=== PATIENT | male | born 1960 | race Caucasian/White ===

== ENCOUNTER 2023-06-15 09:38 | Outpatient (OUT) | payer SELFPAY ==
--- NOTE | 2023-06-15 09:48 | ECG_ITS ---
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
== END 2023-06-15 09:39 | disposition home or self-care (01) ==
LOC: CARD 09:41
PROVIDERS: PCP Physician Assistant; Visit Provider Physician Assistant
DX: I49.9 Cardiac arrhythmia, unspecified (principal)
CPT/HCPCS: 93005

== ENCOUNTER 2023-06-18 01:00 | Observation (INO) | payer SELFPAY ==
[2023-06-18] VITALS (41 sets, daily range): BP systolic 92–164; BP diastolic 47–79; PULSE 68–105; RESP 10–27; TEMP 36.9–37.7; O2SAT 89–100; BMI 28.9; BMI 29.3
--- NOTE | 2023-06-18 01:45 | ECG_ITS ---
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
--- NOTE | 2023-06-18 01:46 | CT_ITS ---
[address] [address] Patient Name: SHIRLENE LEVY MRN: [id number] date: 1960 Sex: M Assigned Patient Location: ER Current Patient Location: Accession/Order Number: [id number] Exam Date: 06/18/2023 02:35 Report Date: 06/18/2023 03:03 At the request of: CLARA VO Procedure: CT abdomen pelvis w con EXAMINATION: XR chest 1V, CT abdomen pelvis w con HISTORY: chest pain COMPARISON: No relevant comparison available. FINDINGS: LUNGS: Underexpanded lungs with mild confluent opacities within left lung base. VASCULATURE: No increased pulmonary vasculature. PLEURA: No pneumothorax, effusion, or pleural thickening. CARDIAC: No cardiomegaly or cardiac silhouette abnormality. MEDIASTINUM: No visible mass or adenopathy. BONES: No fracture or visible bone lesion. OTHER: Negative. CT/CT abdomen pelvis w con IMPRESSION: 1. Low lung volume examination. 2. Mild left basilar infiltrates, or possibly atelectasis. EXAMINATION: XR chest 1V, CT abdomen pelvis w con HISTORY: chest pain irregular heartbeat, nausea COMPARISON: No relevant comparison available. TECHNIQUE: Axial, Coronal, and Sagittal images were obtained without and/or with IV contrast as indicated by examination type. Dose reduction techniques were achieved by using automated exposure control and/or adjustment of mA and/or kV according to patient size and/or use of iterative reconstruction technique. FINDINGS: LUNG BASES: Patchy infiltrates within lung bases bilaterally. LIVER: Slightly nodular liver margins. BILIARY: No dilatation or calcification. PANCREAS: No lesion, fluid collection, or abnormal duct dilatation. SPLEEN: Mild splenomegaly, 14.3 cm. ADRENALS: No mass or enlargement. KIDNEYS: Benign-appearing renal cysts bilaterally. Nonobstructing stones within the kidneys, largest on right, 6 mm. BOWEL/MESENTERY: No visible mass, obstruction, or bowel wall thickening. AORTA/VASCULAR: No aneurysm or dissection. RETROPERITONEUM: No mass or adenopathy. LYMPH NODES: No adenopathy. URINARY BLADDER: No visible focal wall thickening, lesion, or calculus. PELVIC ORGANS: No visible mass. Pelvic organs appropriate for patient age. ABDOMINAL WALL: Small fat filled inguinal hernias bilaterally. BONES: No bony lesion or fracture. OTHER: Negative. IMPRESSION: 1. Mild patchy infiltrates within bilateral lung bases favoring pneumonia. 2. Nodular liver margins; nonspecific but suggestive of cirrhosis. 3. Splenomegaly which can also be seen with cirrhosis. No ascites or significant collateral circulation. 4. Nonobstructing bilateral lithiasis. Electronically authenticated by: AYAAN RIVERA Date: 06/18/2023 03:03
[2023-06-18 01:56] LABS: Basophils Percent Auto 0.2 % (0.2-2.0); Eosinophils Percent Auto 0.2 % (0.9-7.0); Hematocrit 38.5 % (42.0-54.0); Hemoglobin 12.6 g/dL (14.0-18.0); Immature Granulocytes Abs Auto 0.02 10^3/uL (0.00-0.03); Immature Granulocytes Pct Auto 0.4 % (0.0-0.5); Lymphocytes Absolute Auto 0.9 10^3/uL (1.2-3.8); Mean Corpuscular HGB Conc 32.7 g/dL (29.9-35.2); Mean Corpuscular Volume 82.4 fL (80.0-94.0); Monocytes Absolute Auto 0.6 10^3/uL (0.3-0.8); Monocytes Percent Auto 10.3 % (1.7-12.0); Neutrophils Absolute Auto 4.1 10^3/uL (1.4-6.5); Neutrophils Percent Auto 72.9 % (43.0-75.0); Platelet Count 191 10^3/uL (150-450); Red Blood Count 4.67 10^6/uL (4.70-6.10); Red Cell Distribution Width 12.9 % (11.0-15.0); White Blood Count 5.6 10^3/uL (4.0-11.0)
--- NOTE | 2023-06-18 02:04 | ED_ITS ---
HPI - Chest Pain General Chief Complaint: Chest Pain Stated Complaint: CHEST PAIN, NASEAU, SOB Time Seen by Provider: 06/18/23 01:29 Source: patient Mode of arrival: Wheelchair Limitations: no limitations History of Present Illness HPI narrative: patient complains of nausea for past couple of weeks. Describes episodes of irregular heart beats and chest pain on and off. Also episodes of dizziness wherein he felt like the room was getting dark and closing in. He has not vomited. Not short of breath but no energy Related Data Home Medications Medication Instructions Recorded Confirmed lisinopril 20 tab 06/18/23 mg-hydrochlorothiazide 25 mg tablet Allergies Allergy/AdvReac Type Severity Reaction Status Date / Time No Known Drug Allergies Allergy Verified 06/18/23 01:17 Review of Systems ROS Status of ROS 10 or more systems reviewed and unremark able except as noted in history and below [facility] Medical History (Updated 06/18/23 @ 05:00 by Graciela Connor) HTN (hypertension) ?I10 - Essential (primary) hypertension (ICD-10) Family History (Updated 06/18/23 @ 05:01 by Graciela Connor) Father Family history of cancer Social History (Updated 06/18/23 @ 05:02 by Graciela Connor) Within the past year, how often did you have a drink containing alcohol: monthly or less Within the past year, how many standard drinks containing alcohol did you have on a typical day: 5 or 6 Within the past year, how often did you have six or more drinks on one occasion: never Total score: 4 Score interpretation: A score less than 4 is consistent with normal alcohol consumption. Smoking status: Former smoker Second hand tobacco smoke exposure: No Non-prescribed substance use: denies use Previous occupational history: daja Known occupational exposures/hazards: No Highest level of school completed/degree received: high school graduate Are you now , , , , never or living with a partner: In a typical week, how many times do you talk on the telephone with family, friends, or neighbors: 3 or more times per week How often do you get together with friends or relatives: 3 or more times per week How often do you attend restorationist or druze services: never Do you belong to any clubs or organizations such as restorationist groups unions, fraternal or athletic groups, or school groups: no Total score: 2 Score interpretation: A score of greater than or equal to 2 indicates the lowest level of social isolation. Little interest or pleasure in doing things: not at all Feeling down, depressed, or hopeless: not at all Feel stressed/tense/nervous/anxious/difficulty sleeping: not at all Due to disability, difficulty making decisions: No Do you think of yourself as: straight/heterosexual Gender Identity: male Exam Constitutional Vital Signs, click to edit/add: Last Vital Signs Temp 99.0 F 06/18/23 04:31 Pulse 96 H 06/18/23 06:11 Resp 18 06/18/23 04:31 BP 164/78 H 06/18/23 04:31 Pulse Ox 96 06/18/23 04:31 O2 Del Method Room Air 06/18/23 04:31 Common normals: no apparent distress, average body habitus, oriented x3, no limitations, healthy appearing, alert and well nourished Eye Common normals: EOMs intact bilaterally and conjunctivae normal Respiratory Common normals: normal respiratory effort, no retractions and no use of accessory muscles Cardio Common normals: regular rate, regular rhythm, S1 normal heart sound and S2 normal heart sound GI Common normals: Normal to inspection, nondistended, normoactive bowel sounds present, soft to palpation and non-tender Extremity Common normals: normal to inspection and full ROM Neuro Common normals: oriented x3, CN's II-XII intact bilaterally, moves all extremities and no focal motor deficits Psych Appearance: grossly normal Course Vital Signs Vital signs: Vital Signs Pulse Rate 100 H 06/18/23 01:10 Respiratory Rate 17 06/18/23 01:10 Temperature 99.0 F 06/18/23 04:31 Pulse Rate 96 H 06/18/23 06:11 Respiratory Rate 18 06/18/23 04:31 Blood Pressure 164/78 H 06/18/23 04:31 Pulse Oximetry 96 06/18/23 04:31 Oxygen Delivery Method Room Air 06/18/23 04:31 MDM - Chest Pain MDM Narrative Medical decision making narrative: patient ill the past 2 weeks with gen. weakness. No energy. Also describes irregular heart beats, episodes of chest pain and recurrent episodes of near syncope. feels like everything was going dark. found to have elevated lipase . CT without evidence of pancreatitis. CT with bilat patchy infiltrates favoring pneumonia. EKG with frequent PVCs. Discussed with the hospitalist and will plan obs admission Lab Data Labs: Lab Results 06/18/23 06/18/23 Range/Units 01:28 01:57 WBC 5.6 (4.0-11.0) 10^3/uL RBC 4.67 L (4.70-6.10) 10^6/uL Hgb 12.6 L (14.0-18.0) g/dL Hct 38.5 L (42.0-54.0) % MCV 82.4 (80.0-94.0) fL MCH 27.0 (25.9-34.0) pg MCHC 32.7 (29.9-35.2) g/dL RDW 12.9 (11.0-15.0) % Plt Count 191 (150-450) 10^3/uL MPV 9.0 L (9.5-13.5) fL Neut % (Auto) 72.9 (43.0-75.0) % Lymph % (Auto) 16.0 L (20.5-60.0) % [place] % (Auto) 10.3 (1.7-12.0) % Eos % (Auto) 0.2 L (0.9-7.0) % Baso % (Auto) 0.2 (0.2-2.0) % Neut # (Auto) 4.1 (1.4-6.5) 10^3/uL Lymph # (Auto) 0.9 L (1.2-3.8) 10^3/uL [place] # (Auto) 0.6 (0.3-0.8) 10^3/uL Eos # (Auto) 0.0 (0.0-0.7) 10^3/uL Baso # (Auto) 0.0 (0.0-0.1) 10^3/uL Abs Immat Gran (auto) 0.02 (0.00-0.03) 10^3/uL Imm/Tot Granulo (auto) 0.4 (0.0-0.5) % D-Dimer 0.50 (<=0.59) mg/L FEU Sodium 136 (136-145) mmol/L Potassium 3.7 (3.5-5.1) mmol/L Chloride 101 (98-107) mmol/L Carbon Dioxide 26.6 (21.0-32.0) mmol/L Anion Gap 12.1 BUN 18.0 (7.0-18.0) mg/dL Creatinine 1.15 (0.70-1.30) mg/dL Est GFR ( Amer) >60 (>=60) Est GFR (Non-Af Amer) >60 (>=60) BUN/Creatinine Ratio 15.7 Glucose 128 H (74-106) mg/dL Calcium 8.9 (8.5-10.1) mg/dL Total Bilirubin 0.9 (0.2-1.0) mg/dL AST 49 H (15-37) U/L ALT 62 (16-63) U/L Alkaline Phosphatase 61 (46-116) U/L Troponin I High Sens 9.8 (4.0-76.1) pg/mL Total Protein 7.2 (6.4-8.2) g/dL Albumin 2.7 L (3.4-5.0) g/dL Globulin 4.5 g/dL Albumin/Globulin Ratio 0.6 Lipase 91.0 H (16.0-77.0) U/L Adenovirus (PCR) Not detected (NOT DETECTE) C. pneumoniae DNA (PCR) Not detected (NOT DETECTE) Coronavirus Type OC43 Not detected (NOT DETECTE) Coronavirus Type HKU1 Not detected (NOT DETECTE) Coronavirus Type 229E Not detected (NOT DETECTE) Coronavirus Type NL63 Not detected (NOT DETECTE) Human Metapneumovir PCR Not detected (NOT DETECTE) M. pneumoniae (PCR) Not detected (NOT DETECTE) Parainfluenza PCR Not detected (NOT DETECTE) Parainfluenza 2 (PCR) Not detected (NOT DETECTE) Parainfluenza 3 (PCR) Not detected (NOT DETECTE) Parainfluenza 4 (PCR) Not detected (NOT DETECTE) RSV (RT-PCR) Not detected (NOT DETECTE) Entero/Rhino (PCR) Not detected (NOT DETECTE) SARS-CoV-2 (PCR) Detected A (NOT DETECTE) Bordetella pertussis (PCR) Not detected (NOT DETECTE) B parapertussis DNA PCR Not detected (NOT DETECTE) Influenza Type A (PCR) Not detected (NOT DETECTE) Influenza Type B (PCR) Not detected (NOT DETECTE) Discharge Plan Discharge Chief Complaint: Chest Pain Clinical Impression: Pneumonia due to COVID-19 virus, Frequent PVCs, Near syncope Patient Disposition: Admitted as Observation Discharge Date/Time: 06/18/23 04:54
[2023-06-18 02:07] LABS: Adenovirus NOT DETECTED (NOT DETECTE); Bordetella parapertussis NOT DETECTED (NOT DETECTE); Coronavirus 229E NOT DETECTED (NOT DETECTE); Coronavirus HKU1 NOT DETECTED (NOT DETECTE); Coronavirus NL63 NOT DETECTED (NOT DETECTE); Coronavirus OC43 NOT DETECTED (NOT DETECTE); Human Metapneumovirus NOT DETECTED (NOT DETECTE); Human Rhinovirus/Enterovirus NOT DETECTED (NOT DETECTE); Influenza A NOT DETECTED (NOT DETECTE); Influenza B NOT DETECTED (NOT DETECTE); Mycoplasma pneumoniae NOT DETECTED (NOT DETECTE); Parainfluenza Virus 1 NOT DETECTED (NOT DETECTE); Parainfluenza Virus 2 NOT DETECTED (NOT DETECTE); Parainfluenza Virus 3 NOT DETECTED (NOT DETECTE); Parainfluenza Virus 4 NOT DETECTED (NOT DETECTE); Respiratory Syncytial Virus NOT DETECTED (NOT DETECTE)
[2023-06-18 02:19] LABS: Alanine Aminotransferase 62 U/L (16-63); Albumin Globulin Ratio 0.6; Albumin Level 2.7 g/dL (3.4-5.0); Alkaline Phosphatase 61 U/L (46-116); Anion Gap 12.1; Aspartate Amino Transferase 49 U/L (15-37); BUN Creatinine Ratio 15.7; Bilirubin Total 0.9 mg/dL (0.2-1.0); Calcium 8.9 mg/dL (8.5-10.1); Carbon Dioxide 26.6 mmol/L (21.0-32.0); Chloride 101 mmol/L (98-107); Estimated GFR (African America >60 (>=60); Estimated GFR (Non-African Ame >60 (>=60); Globulin 4.5 g/dL; Glucose 128 mg/dL (74-106); Potassium 3.7 mmol/L (3.5-5.1); Sodium 136 mmol/L (136-145); Total Protein 7.2 g/dL (6.4-8.2); Troponin I High Sensitivity 9.8 pg/mL (4.0-76.1)
[2023-06-18 03:01] LABS: SARS-CoV-2 DETECTED (NOT DETECTE)
[2023-06-18] MEDS: ONDANSETRON PF 4 MG/2 ML VIAL IV (03:02)
--- NOTE | 2023-06-18 08:30 | CA_ITS ---
Patient Name Site Name SHIRLENE LEVY [facility] Account No Medical Record Number Age Sex Date Time [id number] [facility]:[id number] M 06/19/2023 07:17 At the Request Of SHAIKH ELLIOT ECHOCARDIOGRAM REPORT PROCEDURE: CA ECHO DOPPLER COMPLETE INDICATIONS: Presyncope, Covid pneumonia, Chest pain, palpitations, Dyspnea COMPARISON: None. DESCRIPTION: COMPLETE ECHOCARDIOGRAM Real-time transthoracic echocardiography with 2D, M-mode, spectral and color flow Doppler performed. QUALITY: Technical quality was good. LEFT VENTRICLE: Normal chamber size. Moderate concentric left ventricular hypertrophy. Global left ventricular systolic function is normal. LV EF: Estimated left ventricular ejection fraction is 65 % DIASTOLIC: Normal diastolic function. ATRIAL SEPTUM: LEFT ATRIUM: Normal chamber size. RIGHT ATRIUM: Normal chamber size. RIGHT VENTRICLE: Normal chamber size. Normal right ventricular systolic function. TRICUSPID VALVE: Normal mobility and thickness. No stenosis with trivial regurgitation. No evidence of pulmonary hypertension. RVSP 25 mmHg MITRAL VALVE: Normal mobility and thickness. No evidence of mitral valve stenosis. There is no mitral annular calcification. Trivial mitral regurgitation. AORTIC VALVE: Normal trileaflet appearance. Thickened aortic valve. Normal leaflet mobility. No evidence of aortic valve stenosis. No aortic regurgitation. AORTIC ROOT: Normal diameter and appearance. PULMONIC VALVE: Normal thickness and mobility. No stenosis. No regurgitation. PERICARDIUM: No evidence of pericardial effusion. IVC: Collapses with inspirations. Normal size. PLEURA: CONCLUSION: 1. Moderate concentric left ventricular hypertrophy with normal systolic function. LVEF is 65%. 2. Normal right ventricular size and systolic function. 3. No significant valvular dysfunction. 4. Normal right-sided pressures. Adult Echocardiography Procedure Report Left Ventricle LVEDD (3.7 - 5.6 cm): 4.52 cm LVESD (2.2 - 4.0 cm): 2.95 cm LVIVS thickness (0.6 - 1.2 cm): 1.48 cm LVPW thickness (0.5 - 1.0 cm): 1.26 cm e': 0.08 m/s E - e': 10.15 LVOT Max Gradient: 6.00 mm[Hg] LVOT Area (cm2): 1.22 m/s Peak Velocity (LVOT): 1.22 m/s Mean Velocity (LVOT): 0.85 m/s LVOT Diameter 2.42 cm Left Ventricular Ejection Fraction: 65 % Left Atrium LA Volume Index (2D A2C): 33.20 ml/m2 Left Atrium Systolic Dimension: 4.08 cm Mitral Valve MV E to A Ratio: 0.84 Mitral Valve A-Wave Peak Velocity: 0.97 m/s Mitral Valve E-Wave Peak Velocity: 0.82 m/s Right Ventricle RV Internal Diastolic Dimension: 3.57 cm Aorta AO Root Diam: 3.14 cm Ascending Ao Diam: 3.42 cm Aortic Valve AoV Area (Peak Rob): 3.48 cm2, 3.48 cm2 AoV Area (VTI): 3.12 cm2, 3.12 cm2 Peak Velocity(Antegrade Flow): 1.62 m/s Peak Gradient(Antegrade Flow): 10.55 mm[Hg] Mean Velocity(Antegrade Flow): 1.06 m/s Mean Gradient(Antegrade Flow): 5.23 mm[Hg] Velocity Time Integral: 33.20 cm Tricuspid Valve Peak Velocity (Regurgitant Flow): 2.11 m/s, 2.36 m/s Pulmonic Valve Mean Gradient: 5.60 mm[Hg], 4.37 mm[Hg], 4.41 mm[Hg] Mean Velocity: 1.14 m/s, 0.97 m/s, 0.96 m/s Peak Velocity: 1.46 m/s Peak Gradient: 8.95 mm[Hg], 8.61 mm[Hg], 7.87 mm[Hg] Right Atrium Right Atrium Systolic Pressure: 67.61 ml, 67.61 ml Dictated by: Ronald Colon M.D. on 06/20/2023 at 18:21 Approved by: Ronald Colon M.D. on 06/20/2023 at 18:25
[2023-06-18 09:10] LABS: TSH W/ REFLEX FT4 1.685 (0.358-3.740)
[2023-06-18] MEDS: CEFTRIAXONE 1,000 MG in 0.9 % SODIUM CHLORIDE 50 ML 100 MG IV (09:44)
[2023-06-18] MEDS: METOPROLOL TARTRATE 25 MG TABLET PO ×2 (09:44→20:46)
[2023-06-18] MEDS: LACTATED RINGER'S SOLUTION 1,000 ML 100 ML IV ×2 (09:44→19:51)
[2023-06-18] MEDS: ENOXAPARIN SODIUM 40 MG/0.4 ML SYRINGE SUBQ (09:45)
[2023-06-18 12:07] LABS: Troponin I High Sensitivity 8.6 pg/mL (4.0-76.1)
--- NOTE | 2023-06-18 12:40 | P.HP_ITS ---
H&P: HPI History of Present Illness Chief complaint: CHEST PAIN, NASEAU, SOB COVID PNEUMONIA Narrative: 62 y o male reports for past 2 weeks, he has been feeling weak, tired. He has no appetite and has not eating,drinking much. He denies fever, cough or resp symptoms but has been experiencing intermittent abdominal discomfort and heart palpitations with associated mild chest and abdominal discomfort. He came to ED last evening for further evaluation when along with heart palpitations, he felt his vision was closing in on him and that he will pass out. he has no prior hx of CAD, CHF or arhythmia. W/u in ED revealed patient has COVID-19 PNA and was admitted for cardiac monitoring. He reports feeling better today. He has not felt palpitations since admission. Review of Systems ROS Status of ROS 10 or more systems reviewed and unremark able except as noted in history and below [facility] Medical History (Updated 06/18/23 @ 12:48 by Shaikh Tyrese MD) Chronic hepatitis C ?B18.2 - Chronic viral hepatitis C (ICD-10) HTN (hypertension) ?I10 - Essential (primary) hypertension (ICD-10) Family History (Updated 06/18/23 @ 05:01 by Graciela Connor) Father Family history of cancer Social History (Updated 06/18/23 @ 05:02 by Graciela Connor) Within the past year, how often did you have a drink containing alcohol: monthly or less Within the past year, how many standard drinks containing alcohol did you have on a typical day: 5 or 6 Within the past year, how often did you have six or more drinks on one occasion: never Total score: 4 Score interpretation: A score less than 4 is consistent with normal alcohol consumption. Smoking status: Former smoker Second hand tobacco smoke exposure: No Non-prescribed substance use: denies use Previous occupational history: elevator serviceman Known occupational exposures/hazards: No Highest level of school completed/degree received: high school graduate Are you now , , , , never or living with a partner: In a typical week, how many times do you talk on the telephone with family, friends, or neighbors: 3 or more times per week How often do you get together with friends or relatives: 3 or more times per week How often do you attend zoroastrianism or church services: never Do you belong to any clubs or organizations such as zoroastrianism groups unions, fraternal or athletic groups, or school groups: no Total score: 2 Score interpretation: A score of greater than or equal to 2 indicates the lowest level of social isolation. Little interest or pleasure in doing things: not at all Feeling down, depressed, or hopeless: not at all Feel stressed/tense/nervous/anxious/difficulty sleeping: not at all Due to disability, difficulty making decisions: No Do you think of yourself as: straight/heterosexual Gender Identity: male Meds Home Medications and Allergies Home Medications Medication Instructions Recorded Confirmed Type lisinopril 20 1 tab PO .QD 06/18/23 06/18/23 History mg-hydrochlorothiazide 25 mg tablet Allergies Allergy/AdvReac Type Severity Reaction Status Date / Time No Known Drug Allergies Allergy Verified 06/18/23 01:17 Exam Constitutional Vital Signs, click to edit/add: Last Vital Signs Temp 99.0 F 06/18/23 04:31 Pulse 74 06/18/23 11:52 Resp 18 06/18/23 08:00 BP 164/78 H 06/18/23 04:31 Pulse Ox 96 06/18/23 04:31 O2 Del Method Room Air 06/18/23 04:31 Documenting provider has reviewed patient's vital signs: yes Common normals: no apparent distress and oriented x3 General appearance: cooperative HENMT Common normals: normocephalic and head/scalp atraumatic Head and scalp: normocephalic and atraumatic Eye Common normals: conjunctivae normal and no scleral icterus Conjunctiva: conjunctiva(e) normal Respiratory Common normals: normal respiratory effort and clear to auscultation bilaterally Effort & inspection: able to speak in complete sentences Auscultation: clear to auscultation bilaterally Cardio Common normals: regular rate, S1 normal heart sound and S2 normal heart sound Rate: regular rate Heart sounds: S1 normal and S2 normal GI Common normals: Normal to inspection, nondistended, normoactive bowel sounds present, soft to palpation, non-tender and no hepatosplenomegaly Palpation: soft and no hepatosplenomegaly Extremity Common normals: no clubbing, cyanosis or edema Neuro Common normals: oriented x3, moves all extremities and no focal motor deficits Psych Common normals: mental status grossly normal, denies hallucinations, denies homicidal ideation and denies suicidal ideation Results Labs Labs: Short CBC 06/18/23 Range/Units 01:28 WBC 5.6 (4.0-11.0) 10^3/uL Hgb 12.6 L (14.0-18.0) g/dL Hct 38.5 L (42.0-54.0) % Plt Count 191 (150-450) 10^3/uL BMP 06/18/23 01:28 Sodium 136 Potassium 3.7 Chloride 101 Carbon Dioxide 26.6 BUN 18.0 Creatinine 1.15 Glucose 128 H Calcium 8.9 Liver Function 06/18/23 Range/Units 01:28 Total Bilirubin 0.9 (0.2-1.0) mg/dL AST 49 H (15-37) U/L ALT 62 (16-63) U/L Alkaline Phosphatase 61 (46-116) U/L Albumin 2.7 L (3.4-5.0) g/dL Assessment and Plan Assessment and Plan (1) Chest pain: Assessment and Plan: Chest discomfort, assocaited with palpitations. Check cardiac enzymes, ECHO. Will benefit from w/u for underlying ischemic heart disease but its better to defer until he is feeling well and fully recovered from COVID. Qualifiers: Chest pain type: unspecified Qualified Code(s): R07.9 - Chest pain, unspecified (2) Chronic hepatitis C: Assessment and Plan: s/p rx 20 years ago. (3) Frequent PVCs: Assessment and Plan: Frequent PVCs, ventricular bigeminy. Patient experiencing intermittent palpitations and chest discomfort. Will get an ECHO to assess cardiac structure. cw tele monitoring. Check cardiac enzymes. Started on Lopressor 25 q12. (4) HTN (hypertension): Assessment and Plan: At goal. C/w home meds. Added Lopressor. Qualifiers: Hypertension type: primary hypertension Qualified Code(s): I10 - Essential (primary) hypertension (5) Near syncope: Assessment and Plan: Associated with palpitations, chest discomfort. Check ECHO, cardiac enzymes. C/w Hydration. (6) Pneumonia due to COVID-19 virus: Assessment and Plan: no resp symptoms but has had poor PO intake due to loss of appetite. has lost weight because of it. Monitor. No need for isolation. Patient empirically being treated for bacterial PNA. on rocephin. C/w IV hydration (7) Abnormal liver diagnostic imaging: Assessment and Plan: Non specific findings suggestive of liver cirrhosis. Patient is unaware of the diagnosis. Defer to outpatient. Will likely need a Fibroscan. Patient was informed of it.
[2023-06-18 15:26] LABS: Troponin I High Sensitivity 8.4 pg/mL (4.0-76.1)
[2023-06-18] MEDS: TRAZODONE HCL 50 MG TABLET PO (21:06)
[2023-06-19] VITALS (11 sets, daily range): BP systolic 101–110; BP diastolic 60; PULSE 52–78; RESP 16–18; TEMP 36.3–37.1; O2SAT 88–95
[2023-06-19] MEDS: LACTATED RINGER'S SOLUTION 1,000 ML 100 ML IV (04:45)
[2023-06-19 05:35] LABS: Basophils Percent Auto 0.2 % (0.2-2.0); Eosinophils Absolute Auto 0.1 10^3/uL (0.0-0.7); Eosinophils Percent Auto 1.7 % (0.9-7.0); Hematocrit 35.2 % (42.0-54.0); Hemoglobin 11.3 g/dL (14.0-18.0); Immature Granulocytes Abs Auto 0.03 10^3/uL (0.00-0.03); Immature Granulocytes Pct Auto 0.6 % (0.0-0.5); Lymphocytes Absolute Auto 1.1 10^3/uL (1.2-3.8); Lymphocytes Percent Auto 20.9 % (20.5-60.0); Mean Corpuscular HGB Conc 32.1 g/dL (29.9-35.2); Mean Corpuscular Hemoglobin 26.4 pg (25.9-34.0); Mean Corpuscular Volume 82.2 fL (80.0-94.0); Monocytes Absolute Auto 0.7 10^3/uL (0.3-0.8); Monocytes Percent Auto 12.3 % (1.7-12.0); Neutrophils Absolute Auto 3.4 10^3/uL (1.4-6.5); Neutrophils Percent Auto 64.3 % (43.0-75.0); Platelet Count 177 10^3/uL (150-450); Red Blood Count 4.28 10^6/uL (4.70-6.10); White Blood Count 5.3 10^3/uL (4.0-11.0)
[2023-06-19 05:57] LABS: Alanine Aminotransferase 46 U/L (16-63); Albumin Globulin Ratio 0.5; Albumin Level 2.1 g/dL (3.4-5.0); Alkaline Phosphatase 49 U/L (46-116); Aspartate Amino Transferase 36 U/L (15-37); Bilirubin Total 0.8 mg/dL (0.2-1.0); Calcium 8.5 mg/dL (8.5-10.1); Carbon Dioxide 28.1 mmol/L (21.0-32.0); Chloride 102 mmol/L (98-107); Estimated GFR (African America >60 (>=60); Estimated GFR (Non-African Ame >60 (>=60); Glucose 93 mg/dL (74-106); Potassium 4.1 mmol/L (3.5-5.1); Sodium 136 mmol/L (136-145); Total Protein 6.1 g/dL (6.4-8.2)
[2023-06-19] MEDS: ENOXAPARIN SODIUM 40 MG/0.4 ML SYRINGE SUBQ (09:38)
[2023-06-19] MEDS: METOPROLOL TARTRATE 25 MG TABLET PO (09:38)
[2023-06-19] MEDS: CEFTRIAXONE 1,000 MG in 0.9 % SODIUM CHLORIDE 50 ML 100 MG IV (09:39)
--- NOTE | 2023-06-19 10:54 | CM.NOTE ---
Rounds made with Dr. Xiong. Echo was completed today and depending on results, possible discharge today.
--- NOTE | 2023-06-19 11:59 | P.DS_ITS ---
DS: Providers Provider Date of admission: 06/18/23 04:19 Primary care physician: Cornell Bueno Consults: 06/18/23 Consult to Dietitian Routine Reason For Exam: loss of appetite and recent weight loss. Reason for consultation: loss of appetite and recent weight loss. 06/18/23 08:30 Occupational Therapy Eval and Treat Routine Reason for consultation: Ambulatory dysfunction/weakness Physical Therapy Eval and Treat Routine Reason for consultation: Ambulatory dysfunction/weakness Attending physician on discharge: Shaikh Tyrese Discharging clinician: Shaikh Tyrese Anticipated date of discharge: 06/19/23 DS: Diagnosis Discharge Diagnosis (1) Chest pain: Assessment and plan: remained Chest pain free. Trop x 3 Negative. ECHO - unofficial read (no sig abnormality noted) Recommend outpatient stress test once patient is better. Qualifiers: Chest pain type: unspecified Qualified Code(s): R07.9 - Chest pain, unspecified (2) Chronic hepatitis C: Assessment and plan: s/p rx 20 years ago. (3) Frequent PVCs: Assessment and plan: PVCs on EKG. But not much on tele monitoring since he was started on Lopressor. C/w same. Will d/c on PO loressor. (4) HTN (hypertension): Assessment and plan: BP a goal. Started on Lopressor. Will d/c HCTZ to make sure BP is not too tightly controlled. F/u with PCP as outpatient to adjust meds as needed. Qualifiers: Hypertension type: primary hypertension Qualified Code(s): I10 - Essential (primary) hypertension (5) Near syncope: Assessment and plan: Likely due to dehydration. No orthostasis, feels well. (6) Pneumonia due to COVID-19 virus: Assessment and plan: COVID PNA. Mild resp symptoms including cough. Will d/c on prednisone, Ceftin and benzonate as needed for cough. (7) Abnormal liver diagnostic imaging: Assessment and plan: Possible underlying liver cirrhosis on CT Recommend outpatient f/u. Will possibly need Fibroscan DS: Summary Hospital Course Hospital Course: 62 y o male presented with 2 weeks hx of feeling weak, tired and loss of appetite. He also reported intermittent abdominal discomfort and heart palpitations with associated mild chest and abdominal discomfort. He came to ED for further evaluation when along with heart palpitations, he felt his vision was closing in on him and that he will pass out. he has no prior hx of CAD, CHF or arhythmia. W/u in ED revealed patient has COVID-19 PNA and was admitted for cardiac monitoring. Trop x 3 negative. 2D ECHO (unofficial reading) no sig cardaic structural abnormality noted. No sig event on tele. Patient will be discharged on PO lopressor. D/c HCTZ. C/w Lisinopril. Will need to monitor Home BP and adjust meds as needed - defer to PCP Patient will be discharged on PO prednisone, ceftin and benzonatate for cough Educated on worrisome signs and symptoms, answered his questions and concerns. F/u with PCP in one week Status at Discharge Functional status at discharge: independent ambulation Overall status at discharge: patient is progressing back to baseline Time Spent with Patient Time attestation: Total time spent providing and/or coordinating discharge services: Exam Constitutional Vital Signs, click to edit/add: Last Vital Signs Temp 98.7 F 06/19/23 05:34 Pulse 76 06/19/23 11:00 Resp 18 06/19/23 05:34 BP 101/60 06/19/23 05:34 Pulse Ox 92 L 06/19/23 11:00 O2 Del Method Room Air 06/19/23 10:55 O2 Flow Rate 1 06/19/23 05:34 Documenting provider has reviewed patient's vital signs: yes Common normals: no apparent distress and oriented x3 General appearance: cooperative [facility] Common normals: normocephalic and head/scalp atraumatic Head and scalp: normocephalic and atraumatic Eye Common normals: conjunctivae normal and no scleral icterus Conjunctiva: conjunctiva(e) normal Respiratory Common normals: normal respiratory effort and clear to auscultation bilaterally Effort & inspection: able to speak in complete sentences Auscultation: clear to auscultation bilaterally Cardio Common normals: regular rate, S1 normal heart sound and S2 normal heart sound Rate: regular rate Heart sounds: S1 normal and S2 normal GI Common normals: Normal to inspection, nondistended, normoactive bowel sounds present, soft to palpation, non-tender and no hepatosplenomegaly Palpation: soft and no hepatosplenomegaly Extremity Common normals: no clubbing, cyanosis or edema Neuro Common normals: oriented x3, moves all extremities and no focal motor deficits Psych Common normals: mental status grossly normal, denies hallucinations, denies homicidal ideation and denies suicidal ideation DS: Data Data Completed and Pending Labs on day of discharge: Labs from last 24 hours 06/19/23 06/18/23 06/18/23 05:17 15:02 11:43 WBC 5.3 RBC 4.28 L Hgb 11.3 L Hct 35.2 L MCV 82.2 MCH 26.4 MCHC 32.1 RDW 13.0 Plt Count 177 MPV 9.0 L Neut % (Auto) 64.3 Lymph % (Auto) 20.9 Whitley % (Auto) 12.3 H Eos % (Auto) 1.7 Baso % (Auto) 0.2 Neut # (Auto) 3.4 Lymph # (Auto) 1.1 L Whitley # (Auto) 0.7 Eos # (Auto) 0.1 Baso # (Auto) 0.0 Abs Immat Gran (auto) 0.03 Imm/Tot Granulo (auto) 0.6 H Sodium 136 Potassium 4.1 Chloride 102 Carbon Dioxide 28.1 Anion Gap 10.0 BUN 18.0 Creatinine 1.06 Est GFR ( Amer) >60 Est GFR (Non-Af Amer) >60 BUN/Creatinine Ratio 17.0 Glucose 93 Calcium 8.5 Total Bilirubin 0.8 AST 36 ALT 46 Alkaline Phosphatase 49 Troponin I High Sens 8.4 8.6 Total Protein 6.1 L Albumin 2.1 L Globulin 4.0 Albumin/Globulin Ratio 0.5 Discharge Plan Discharge Disposition: Home, Self-Care Discharge Medications: New metoprolol tartrate 25 mg tablet 25 mg PO BID Qty: 60 0RF lisinopril 20 mg tablet 20 mg PO DAILY 30 Days Qty: 30 0RF prednisone 20 mg tablet 20 mg PO BID 5 Days Qty: 10 0RF benzonatate 100 mg capsule 100 mg PO BID PRN (Reason: cough) Qty: 10 0RF cefuroxime axetil 500 mg tablet 500 mg PO BID 7 Days Qty: 14 0RF Discontinued lisinopril-hydrochlorothiazide 20-25 mg tablet 1 tab PO .QD Activity: increase activity as tolerated Diet: advance to your usual diet Forms: Portal Instructions Follow Up Appointments: PCP in one week
== END 2023-06-19 16:41 | disposition home or self-care (01) ==
LOC: ER 03:44 → MS 04:21
PROVIDERS: Admitting Provider Internal Medicine; Emergency Provider Internal Medicine; PCP Physician Assistant; Visit Provider Internal Medicine
DX: U07.1 COVID-19 (principal); J12.82 Pneumonia due to coronavirus disease 2019; R07.9 Chest pain, unspecified; I10 Essential (primary) hypertension; R55 Syncope and collapse; I49.3 Ventricular premature depolarization; B18.2 Chronic viral hepatitis C; R93.2 Abnormal findings on diagnostic imaging of liver and biliary tract; Z79.899 Other long term (current) drug therapy; Z87.891 Personal history of nicotine dependence
CPT/HCPCS: 0202U; 36415; 71045; 74177; 80053; 83690; 84443; 84484; 85025; 85378; 93005; 93306; 94761; 96361; 96365; 96366; 96372; 96375; 97165; 99285; G0378; Q9967